=== PATIENT | female | born 1990 | race Caucasian/White ===

== ENCOUNTER 2024-05-05 04:26 | Emergency (ER) | payer SELFPAY ==
[~2024-05-05] VITALS: Ht 162.6 cm; Wt 81.6 kg
[2024-05-05 04:28] VITALS: TEMP 98.4
[2024-05-05 05:10] VITALS: PULSE 78; RESP 17
[2024-05-05 06:42] VITALS: BP 142/70; PULSE 72; RESP 16; TEMP 98.2; O2SAT 100
[2024-05-06] MEDS: IBUPROFEN 600 MG TAB PO STA (02:16)
[2024-05-06] MEDS: ONDANSETRON HCL 4 MG ORAL DISINTEGRATING TAB SL ONE (02:16)
== END 2024-05-05 07:08 | disposition home or self-care (01) ==
LOC: ER 04:30 → EDBD 04:30 → ER 07:08
DX: M25.552 Pain in left hip (principal); W18.39XA Other fall on same level, initial encounter; Y92.89 Other specified places as the place of occurrence of the external cause
CPT/HCPCS: 36415; 72170; 84702; 99283